=== PATIENT | male | born 1960 | race Caucasian/White ===

== ENCOUNTER → 2017-04-28 | Outpatient (CLI) | payer BC ==
[~2017-04-28] VITALS: Ht 188 cm; Wt 112.5 kg
[~2017-04-28] MED LIST: ANIMAL CHEWS1 EACH PO; VITAMIN B COMP1 EACH PO
== END | disposition home or self-care (01) ==
LOC: AMB 08:54
DX: Z12.11 Encounter for screening for malignant neoplasm of colon (principal); D12.2 Benign neoplasm of ascending colon; K62.1 Rectal polyp; K57.30 Diverticulosis of large intestine without perforation or abscess without bleeding; K64.8 Other hemorrhoids; Z86.010 Personal history of colon polyps; E66.9 Obesity, unspecified; Z83.3 Family history of diabetes mellitus; Z82.0 Family history of epilepsy and other diseases of the nervous system; Z68.32 Body mass index [BMI] 32.0-32.9, adult
CPT/HCPCS: 88305